=== PATIENT | female | born 1990 | race Caucasian/White ===

== ENCOUNTER 2018-10-10 07:23 | Observation (INO) | payer BC ==
[~2018-10-10 07:23] MED LIST: Dexamethasone 4 MG/ML 5 ML MDV ONE; Lactated Ringers 1,000 ML IV SCH; Lactated Ringers 1,000 ML ONE; Lidocaine 1% 4 ML ONE; Lidocaine 1%/Sod Bicarbonate in NS 8.4% 1 ML Syringe IDERM PRN; Midazolam 1 MG/ML 2 ML SDV ONE; Ondansetron 4 MG/2 ML SDV ONE; Propofol 200 MG/20 ML SDV ONE; Rocuronium 50 MG/5 ML Vial ONE; Sodium Chloride 0.9% 10 ML Syringe FLUSH PRN; ceFAZolin 1 GM Vial ONE; fentaNYL 250 MCG/5 ML SDV ONE
[2018-10-10] MEDS ORDERED: Lidocaine 1% with EPINEPHrine 1:100,000 20 ML MDV ONE (09:11)
--- NOTE | 2018-10-10 09:19 | PCM.OPNOTE ---
- General Post-Op/Procedure Note Date of Surgery/Procedure: 10/10/18 Operative Procedure(s): Laparoscopic cholecystectomy Findings: Inflamed, distended gallbladder with large gallstone Pre Op Diagnosis: Symptomatic cholelithiasis Post-Op Diagnosis: Same Anesthesia Technique: General ET Tube Primary Surgeon: Kaley Le Anesthesia Provider: Ameena Sofia Pathology: gallbladder Fluid Replacement, Intraop: 1,400 Output, Urine Amount: 0 EBL in mLs: 15 Complications: none apparent Condition: Good
--- NOTE | 2018-10-10 09:19 | PCM.PRNOTE ---
- Free Text/Narrative Note: OPERATIVE REPORT Date of Surgery/Procedure: October 10, 2018 Operative Procedure(s): laparoscopic cholecystectomy Findings: Inflamed, distended gallbladder with large gallstone Pre Op Diagnosis: Symptomatic cholelithiasis Post-Op Diagnosis: Same Anesthesia Technique: General ET Tube Primary Surgeon: Kaley Le MD Anesthesia Provider: Ameena Sofia CRNA Pathology: Gallbladder with stone Fluid Replacement, Intraop: 1400cc Output, Urine Amount: 0cc EBL: 15cc Drain/Tube Comments: None Indication for the procedure: The patient is a 28-year-old lady who presented to my office with symptomatic cholelithiasis. The patient was counseled for laparoscopic cholecystectomy, with possible conversion to open. After discussion of the risks of infection, bleeding and injury to the bile duct as well as increased complication from previous intra-abdominal surgery, the patient's consent was obtained. Description of the procedure: The patient presented to the outpatient holding area on the day of the procedure. The history and physical were verified and consent was present and on the chart. The patient was taken back to the operating room and placed in supine position on the operating table. SCD boots were placed and functional prior to the start of the procedure. Preoperative antibiotics were administered according to SCIP protocol, Ancef 2 g IV. A surgical timeout was performed. The patient then had induction of general anesthesia and was intubated without difficulty. The patient was prepped and draped in standard surgical fashion. We began by making an supraumbilical incision and inserting a 5 mm trocar into the abdomen under direct visualization using the Visiport technique. The periumbilical tissue was grasped on either side to help facilitate entry into the abdomen. Once we had entered, insufflation was attached and we had opened, probed. Opening pressures. The abdomen was insufflated to 12 mmHg. There is no evidence of injury from entry. A TAP block was then performed using 1% lidocaine with epinephrine mixed with 0.5% bupivicaine with epinephrine. The patient was then positioned with head up and right side up to facilitate exposure of the gallbladder. We then proceeded with placing our additional ports. A 12mm port was placed in the epigastric region. Two additional 5mm ports placed under direct visualization in the right upper quadrant. Once we had sufficiently exposed the dome of the gallbladder. This was grasped and retracted cephalad. A laparoscopic decompression needle was then inserted into the gallbladder to help relieve the distended fluid since the gallbladder was too tense to grasp. We proceeded with our dissection to expose the cystic duct and cystic artery. We did have a critical view. The cystic duct and artery were then clipped and cut using endoscopic scissors. We then proceeded to fully dissect the gallbladder off of the cystic plate using the Bovie device. An additional vascular structure was posterior to the gallbladder. This was clipped and divided using endoscopic scissors. The gallbladder was in place in the Endo Catch bag and withdrawn towards the epigastric port. There was some bile spilled during the case and this was suctioned out of the abdomen We then inspected the area of the dissection. This was irrigated and suctioned. A Surgicel was used to assist with hemostasis and the gallbladder bed was also treated with the Bovie device for hemostasis. At the end of the case, there was no significant bleeding and hemostasis was achieved. The fascial opening at the epigastric site was enlarged in order to facilitate excision of the gallbladder. There was a tear made in the Endo Catch bag and the gallbladder was withdrawn through the port, not completely within the bag. The gallbladder was passed off to be sent to pathology. We then inspected the liver bed and were satisfied with hemostasis, and desufflated the abdomen. The ports were then removed. A superficial 4-0 monocryl suture was used to approximate the skin at each of the port sites. The skin was covered with Dermabond surgical glue. The patient tolerated the procedure well and was extubated without difficulty. She was transported to the PACU in stable condition. All sponge, needle counts correct. I was scrubbed and actively participated in the entire procedure. No immediate complications noted. Complications: None apparent Condition: Good Kaley Le MD General Surgery
[2018-10-10] MEDS: Bupivacaine 0.5%/EPINEPHrine 1:200,000 50 ML MDV ONE ×2 (09:41→10:10)
[2018-10-10] MEDS: Lidocaine 1% with EPINEPHrine 1:100,000 20 ML MDV ONE ×2 (09:41→10:11)
[2018-10-10] MEDS ORDERED: diphenhydrAMINE 50 MG/ML SDV ONE (09:42)
[2018-10-10] MEDS ORDERED: Albuterol 6.7 GM Inhaler INH ONE (09:56)
[2018-10-10] MEDS ORDERED: Propofol 200 MG/20 ML SDV ONE (10:12)
[2018-10-10] MEDS ORDERED: HYDROmorphone 0.5 MG/0.5 ML Syringe ONE ×2 (10:17→11:08)
--- NOTE | 2018-10-10 10:27 | PCM.PREANE ---
Preanesthetic Assessment - Anesthesia/Transfusion/Family Hx Anesthesia History: No Prior Anesthesia Family History of Anesthesia Reaction: No - Review of Systems General: No Symptoms, Other (Sesonal Allergies current post nasal drip. Denies cough. ) Pulmonary: No Symptoms Cardiovascular: No Symptoms Gastrointestinal: No Symptoms (Occasional GERD with foods. ) Neurological: No Symptoms Other: Reports: None (PCOS, Morbid Obesity BMI 42. ) - Physical Assessment NPO Status Date: 10/09/18 NPO Status Time: 21:30 O2 Sat by Pulse Oximetry: 98 Respiratory Rate: 17 Vital Signs: Last Vital Signs Temp 36.9 C 10/10/18 07:28 Pulse 74 10/10/18 07:28 Resp 17 10/10/18 07:28 BP 130/85 10/10/18 07:28 Pulse Ox 98 10/10/18 07:28 Height: 1.65 m Weight: 115.2 kg ASA Class: 2 Mental Status: Alert & Oriented x3 Airway Class: Mallampati = 2 Thyro-Mental Finger Breadths: 3 Mouth Opening Finger Breadths: 3 ROM/Head Extension: Full Lungs: Clear to Auscultation, Normal Respiratory Effort, Decreased Breath Sounds (Noted in bilateral bases with ascultation. ) Cardiovascular: Regular Rate, Regular Rhythm - Lab Values: Laboratory Last Values Urine HCG, Qual Negative (NEGATIVE) 10/10/18 07:30 - Allergies Allergies/Adverse Reactions: Allergies Allergy/AdvReac Type Severity Reaction Status Date / Time kiwi Allergy Anaphylactic Verified 10/10/18 08:10 Shock tea tree Allergy Itching Verified 10/10/18 08:10 seasonal Allergy Other Uncoded 10/10/18 08:10 - Anesthesia Plan Pre-Op Medication Ordered: Anxiolytic - Acknowledgements Anesthesia Type Planned: General Anesthesia Pt an Appropriate Candidate for the Planned Anesthesia: Yes Alternatives and Risks of Anesthesia Discussed w Pt/Guardian: Yes Pt/Guardian Understands and Agrees with Anesthesia Plan: Yes PreAnesthesia Questionnaire HEENT History: Reports: Allergic Rhinitis, Impaired Vision Cardiovascular History: Reports: None Respiratory History: Reports: None Gastrointestinal History: Reports: None Genitourinary History: Reports: None 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: Polycystic Ovaries Musculoskeletal History: Reports: None Neurological History: Reports: None Psychiatric History: Reports: None Endocrine/Metabolic History: Reports: Obesity/BMI 30+ Hematologic History: Reports: None Immunologic History: Reports: None Oncologic (Cancer) History: Reports: None Other Dermatologic History: Acne, rosacea - Past Surgical History Head Surgeries/Procedures: Reports: None HEENT Surgical History: Reports: Oral Surgery Cardiovascular Surgical History: Reports: None Respiratory Surgical History: Reports: None GI Surgical History: Reports: None Female Surgical History: Reports: None Endocrine Surgical History: Reports: None Neurological Surgical History: Reports: None Oncologic Surgical History: Reports: None Dermatological Surgical History: Reports: None - SUBSTANCE USE Smoking Status *Q: Never Smoker Second Hand Smoke Exposure: No Recreational Drug Use History: No - HOME MEDS Home Medications: Home Meds Cetirizine [ZyrTEC] 10 mg PO DAILY 10/09/18 [History] EPINEPHrine [Epinephrine] 0.3 mg IM ASDIRECTED PRN 10/09/18 [History] Fluticasone Propionate [Flonase] 2 spray NS DAILY 10/09/18 [History] Ketotifen [Ketotifen 0.025% Ophth Soln] 1 drop EYEBOTH DAILY 10/09/18 [History] Levonorgestrel-Ethin Estradiol [Levonor-Eth Estrad 0.15-0.03] 1 tab PO DAILY 02/19 [History] Multivitamin [Daily Multiple Vitamin] 1 tab PO DAILY 10/09/18 [History] metroNIDAZOLE [Metrogel] 1 applic TP BID PRN 10/09/18 [History] Acetaminophen/HYDROcodone [[place] 325-5 MG] 1 tab PO Q4H PRN 14 Days #40 tablet 10/10/18 [Rx] Docusate Sodium [Colace] 100 mg PO BID 20 Days #40 cap 10/10/18 [Rx] Ibuprofen 600 mg PO Q6HR PRN 20 Days #120 tablet 10/10/18 [Rx] - CURRENT (IN HOUSE) MEDS Current Meds: Current Medications Lactated Ringer's (Ringers, Lactated) 1,000 mls @ 125 mls/hr IV ASDIRECTED VIVIAN Stop: 10/10/18 23:00 Last Admin: 10/10/18 07:40 Dose: 125 mls/hr Lidocaine/Sodium Bicarbonate (Buffered Lidocaine 1% In Ns 8.4%) 0.25 ml IDERM ONETIME PRN PRN Reason: Prior to IV Start Stop: 10/10/18 18:00 Last Admin: 10/10/18 07:40 Dose: 0.25 ml Sodium Chloride (Saline Flush) 10 ml FLUSH ASDIRECTED PRN PRN Reason: Keep Vein Open Stop: 10/10/18 18:00 Discontinued Medications Albuterol (Proventil Hfa) Confirm Administered Dose 6.7 gm INH .STK-MED ONE Stop: 10/10/18 09:57 Bupivacaine HCl/Epinephrine Bitart ([place] 0.5%/Epinephrine 1:200,000) Confirm Administered Dose 50 ml .ROUTE .STK-MED ONE Stop: 10/10/18 08:29 Last Admin: 10/10/18 10:10 Dose: 50 ml Cefazolin Sodium (Ancef) Confirm Administered Dose 2 gm .ROUTE .ST-MED ONE Stop: 10/10/18 07:12 Dexamethasone (Dexamethasone) Confirm Administered Dose 20 mg .ROUTE .ST-MED ONE Stop: 10/10/18 07:13 Diphenhydramine HCl (Benadryl) Confirm Administered Dose 50 mg .ROUTE .ST-MED ONE Stop: 10/10/18 09:43 Fentanyl (Sublimaze) Confirm Administered Dose 250 mcg .ROUTE .ST-MED ONE Stop: 10/10/18 07:12 Lidocaine HCl (Xylocaine-Mpf 1%) Confirm Administered Dose 4 mls @ as directed .ROUTE .ST-MED ONE Stop: 10/10/18 07:12 Lactated Ringer's (Ringers, Lactated) Confirm Administered Dose 1,000 mls @ as directed .ROUTE .ST-MED ONE Stop: 10/10/18 07:12 Lidocaine/Epinephrine (Xylocaine 1% With Epinephrine 1:100,000) Confirm Administered Dose 20 ml .ROUTE .ST-MED ONE Stop: 10/10/18 08:29 Last Admin: 10/10/18 10:11 Dose: 20 ml Lidocaine/Epinephrine (Xylocaine 1% With Epinephrine 1:100,000) Confirm Administered Dose 20 ml .ROUTE .ST-MED ONE Stop: 10/10/18 09:12 Midazolam HCl (Versed 1 Mg/Ml) Confirm Administered Dose 2 mg .ROUTE .STK-MED ONE Stop: 10/10/18 07:12 Ondansetron HCl (Zofran) Confirm Administered Dose 4 mg .ROUTE .STK-MED ONE Stop: 10/10/18 07:12 Propofol (Diprivan 20 Ml) Confirm Administered Dose 400 mg .ROUTE .STK-MED ONE Stop: 10/10/18 07:12 Propofol (Diprivan 20 Ml) Confirm Administered Dose 200 mg .ROUTE .STK-MED ONE Stop: 10/10/18 10:13 Rocuronium [place] (Zemuron) Confirm Administered Dose 50 mg .ROUTE .STK-MED ONE Stop: 10/10/18 07:12
[2018-10-10] MEDS ORDERED: fentaNYL 100 MCG/2 ML SDV ONE (11:05)
[2018-10-10] MEDS ORDERED: Neostigmine Methylsulfate 1 MG/ML 5 ML Syringe ONE (11:07)
[2018-10-10] MEDS ORDERED: Albuterol 0.083% 2.5 MG/3 ML Neb Soln ONE (11:44)
[2018-10-10] MEDS ORDERED: Albuterol 0.083% 2.5 MG/3 ML Neb Soln NEB ONE ×2 (11:50→12:00)
--- NOTE | 2018-10-10 11:50 | PCM.POSTAN ---
POST ANESTHESIA ASSESSMENT - MENTAL STATUS Mental Status: Alert, Oriented - VITAL SIGNS Pulse Rate: 105 SaO2: 98 Resp Rate: 17 Blood Pressure: 136/57 Temperature: 36.6 C - RESPIRATORY Respiratory Status: Respiratory Rate WNL, Airway Patent, O2 Saturation Stable, Supplemental Oxygen (Coughing, CXR requested in PACU. ) - CARDIOVASCULAR CV Status: Blood Pressure Stable, Elevated Pulse Rate - GASTROINTESTINAL GI Status: No Symptoms - PAIN Pain Score: 0 - POST OP HYDRATION Hydration Status: Adequate & Stable
[2018-10-10] MEDS ORDERED: HYDROmorphone 0.5 MG/0.5 ML Syringe IVPUSH PRN (11:52)
[2018-10-10] MEDS ORDERED: diphenhydrAMINE 50 MG/ML SDV IVPUSH PRN (11:52)
[2018-10-10] MEDS ORDERED: fentaNYL 100 MCG/2 ML SDV IVPUSH PRN (11:52)
[2018-10-10] MEDS ORDERED: Ondansetron 4 MG/2 ML SDV IVPUSH PRN (11:52)
--- NOTE | 2018-10-10 12:02 | CR ---
Chest: Portable view of the chest was obtained. Comparison: No prior chest x-ray. Cardiothymic silhouette is normal. Diffuse increased lung markings are seen on both sides of the chest. Lungs otherwise are clear with no alveolar densities. Bony structures are grossly intact. Small amount of free air is seen beneath the right hemidiaphragm. Impression: 1. Increased central lung markings on both sides of the chest. Please correlate if patient has symptoms of fluid overload. 2. Minimal free air beneath the right hemidiaphragm. Diagnostic code #3
[2018-10-10] MEDS ORDERED: Furosemide 20 MG/2 ML VIAL IVPUSH ONE (12:20)
[2018-10-10] MEDS ORDERED: Acetaminophen/HYDROcodone 325-5 MG Tab PO PRN (17:15)
[2018-10-10] MEDS ORDERED: Ibuprofen 600 MG Tab PO PRN (17:15)
[2018-10-10] MEDS ORDERED: Ondansetron 4 MG Tab.DIS PO PRN (17:15)
[2018-10-10] MEDS: Heparin Sodium 5,000 Units/ML Vial SUBCUT SCH (21:16)
[2018-10-11] MEDS: Heparin Sodium 5,000 Units/ML Vial SUBCUT SCH (05:42)
--- NOTE | 2018-10-11 10:40 | PCM.SURGPN ---
- General Info Date of Service: 10/11/18 Date of Surgery/Procedure: 10/10/18 POD#: 1 Functional Status: Reports: Pain Controlled, Tolerating Diet, Ambulating, Urinating, Incentive Spirometry, Other (Pt was admitted for findings of pulmonary edema after surgery and persistent cough with desaturations. Was placed on CPAP which was weaned overnight. Saturating well on room air this am.) - Patient Data Vitals - Most Recent: Last Vital Signs Temp 36.6 C 10/11/18 07:42 Pulse 57 L 10/11/18 08:09 Resp 16 10/11/18 07:42 BP 118/53 L 10/11/18 07:42 Pulse Ox 94 L 10/11/18 10:00 Weight - Most Recent: 69.853 kg I&O - Last 24 Hours: Intake & Output 10/10/18 10/11/18 10/11/18 22:59 06:59 14:59 Intake Total 0 500 Output Total 400 1600 Balance -400 -1100 Lab Results Last 24 Hrs: Laboratory Results - last 24 hr 10/10/18 Range/Units 18:38 WBC 16.67 H (3.98-10.04) K/mm3 RBC 4.55 (3.98-5.22) M/mm3 Hgb 13.4 (11.2-15.7) gm/L Hct 40.3 (34.1-44.9) % MCV 88.6 (79.4-94.8) fl MCH 29.5 (25.6-32.2) pg MCHC 33.3 (32.2-35.5) g/dl RDW Std Deviation 42.7 (36.4-46.3) fL Plt Count 159 L (182-369) K/mm3 MPV 9.5 (9.4-12.3) fl Neut % (Auto) 96.0 H (34.0-71.1) % Lymph % (Auto) 1.7 L (19.3-51.7) % [place] % (Auto) 2.1 L (4.7-12.5) % Eos % (Auto) 0.1 L (0.7-5.8) Baso % (Auto) 0.0 L (0.1-1.2) % Neut # (Auto) 16.01 H (1.56-6.13) K/mm3 Lymph # (Auto) 0.28 L (1.18-3.74) K/mm3 [place] # (Auto) 0.35 (0.24-0.36) K/mm3 Eos # (Auto) 0.01 L (0.04-0.36) K/mm3 Baso # (Auto) 0.00 L (0.01-0.08) K/mm3 Manual Slide Review Abnormal smear Med Orders - Current: Current Medications Hydrocodone Bitart/Acetaminophen ([place] 325-5 Mg) 2 tab PO Q4H PRN PRN Reason: Pain (moderate 4-6) Heparin Sodium (Porcine) (Heparin Sodium) 5,000 units SUBCUT Q8H VIVIAN Last Admin: 10/11/18 05:42 Dose: 5,000 units Ibuprofen (Motrin) 600 mg PO Q6H PRN PRN Reason: Pain (mild 1-3) Last Admin: 10/10/18 21:15 Dose: 600 mg Ondansetron HCl (Zofran Odt) 4 mg PO Q6H PRN PRN Reason: nausea, able to take PO Discontinued Medications Albuterol (Proventil Hfa) Confirm Administered Dose 6.7 gm INH .STK-MED ONE Stop: 10/10/18 09:57 Albuterol (Proventil Neb Soln) 2.5 mg NEB ONETIME ONE Stop: 10/10/18 11:51 Last Admin: 10/10/18 11:47 Dose: 2.5 mg Albuterol (Proventil Neb Soln) Confirm Administered Dose 2.5 mg .ROUTE .STK-MED ONE Stop: 10/10/18 11:45 Last Admin: 10/10/18 20:50 Dose: Not Given Albuterol (Proventil Neb Soln) 2.5 mg NEB ONETIME ONE Stop: 10/10/18 12:01 Last Admin: 10/10/18 20:51 Dose: Not Given Bupivacaine HCl/Epinephrine Bitart ([place] 0.5%/Epinephrine 1:200,000) Confirm Administered Dose 50 ml .ROUTE .STK-MED ONE Stop: 10/10/18 08:29 Last Admin: 10/10/18 09:41 Dose: 30 ml Cefazolin Sodium (Ancef) Confirm Administered Dose 2 gm .ROUTE .STK-MED ONE Stop: 10/10/18 07:12 Dexamethasone (Dexamethasone) Confirm Administered Dose 20 mg .ROUTE .STK-MED ONE Stop: 10/10/18 07:13 Diphenhydramine HCl (Benadryl) Confirm Administered Dose 50 mg .ROUTE .STK-MED ONE Stop: 10/10/18 09:43 Diphenhydramine HCl (Benadryl) 25 mg IVPUSH Q6H PRN PRN Reason: Pruritis Stop: 10/10/18 18:00 Fentanyl (Sublimaze) Confirm Administered Dose 250 mcg .ROUTE .STK-MED ONE Stop: 10/10/18 07:12 Fentanyl (Sublimaze) Confirm Administered Dose 100 mcg .ROUTE .STK-MED ONE Stop: 10/10/18 11:06 Fentanyl (Sublimaze) 50 mcg IVPUSH Q5M PRN PRN Reason: Pain Stop: 10/10/18 18:00 Furosemide (Lasix) 20 mg IVPUSH ONETIME ONE Stop: 10/10/18 12:21 Last Admin: 10/10/18 12:20 Dose: 20 mg Glycopyrrolate () Confirm Administered Dose 1 mg .ROUTE .STK-MED ONE Stop: 10/10/18 11:08 Heparin Sodium (Porcine) (Heparin Sodium) 5,000 units SUBCUT Q8H [facility] Hydromorphone HCl (Dilaudid) Confirm Administered Dose 0.5 mg .ROUTE .STK-MED ONE Stop: 10/10/18 10:18 Hydromorphone HCl (Dilaudid) Confirm Administered Dose 0.5 mg .ROUTE .STK-MED ONE Stop: 10/10/18 11:09 Hydromorphone HCl (Dilaudid) 0.5 mg IVPUSH Q15M PRN PRN Reason: severe pain Stop: 10/10/18 18:00 Lactated Ringer's (Ringers, Lactated) 1,000 mls @ 125 mls/hr IV ASDIRECTED VIVIAN Stop: 10/10/18 23:00 Last Admin: 10/10/18 07:40 Dose: 125 mls/hr Lidocaine HCl (Xylocaine-Mpf 1%) Confirm Administered Dose 4 mls @ as directed .ROUTE .STK-MED ONE Stop: 10/10/18 07:12 Lactated Ringer's (Ringers, Lactated) Confirm Administered Dose 1,000 mls @ as directed .ROUTE .STK-MED ONE Stop: 10/10/18 07:12 Lidocaine/Epinephrine (Xylocaine 1% With Epinephrine 1:100,000) Confirm Administered Dose 20 ml .ROUTE .STK-MED ONE Stop: 10/10/18 08:29 Last Admin: 10/10/18 09:41 Dose: 30 ml Lidocaine/Epinephrine (Xylocaine 1% With Epinephrine 1:100,000) Confirm Administered Dose 20 ml .ROUTE .STK-MED ONE Stop: 10/10/18 09:12 Lidocaine/Sodium Bicarbonate (Buffered Lidocaine 1% In Ns 8.4%) 0.25 ml IDERM ONETIME PRN PRN Reason: Prior to IV Start Stop: 10/10/18 18:00 Last Admin: 10/10/18 07:40 Dose: 0.25 ml Midazolam HCl (Versed 1 Mg/Ml) Confirm Administered Dose 2 mg .ROUTE .STK-MED ONE Stop: 10/10/18 07:12 Neostigmine Methylsulfate (Neostigmine) Confirm Administered Dose 5 mg .ROUTE .STK-MED ONE Stop: 10/10/18 11:08 Ondansetron HCl (Zofran) Confirm Administered Dose 4 mg .ROUTE .STK-MED ONE Stop: 10/10/18 07:12 Ondansetron HCl (Zofran) 4 mg IVPUSH ONETIME PRN PRN Reason: Nausea/Vomiting Stop: 10/10/18 18:00 Propofol (Diprivan 20 Ml) Confirm Administered Dose 400 mg .ROUTE .STK-MED ONE Stop: 10/10/18 07:12 Propofol (Diprivan 20 Ml) Confirm Administered Dose 200 mg .ROUTE .STK-MED ONE Stop: 10/10/18 10:13 Rocuronium [place] (Zemuron) Confirm Administered Dose 50 mg .ROUTE .STK-MED ONE Stop: 10/10/18 07:12 Sodium Chloride (Saline Flush) 10 ml FLUSH ASDIRECTED PRN PRN Reason: Keep Vein Open Stop: 10/10/18 18:00 - Exam Wound/Incisions: Healing Well, Dressing Dry and Intact, No Drainage General: Alert, Oriented HEENT: Pupils Equal, EOMI Lungs: Normal Respiratory Effort GI/Abdominal Exam: Soft, Non-Tender, No Distention, Other - Problem List & Annotations (1) Symptomatic cholelithiasis SNOMED Code(s): 871076047, 747151999 Code(s): K80.20 - CALCULUS OF GALLBLADDER W/O CHOLECYSTITIS W/O OBSTRUCTION Status: Acute Current Visit: Yes (2) Pulmonary edema SNOMED Code(s): 22190359 Code(s): J81.1 - CHRONIC PULMONARY EDEMA Status: Acute Current Visit: Yes - Problem List Review Problem List Initiated/Reviewed/Updated: Yes - My Orders Last 24 Hours: Active Orders 24 hr Category Date Time Status Patient Status [ADT] Routine ADT 10/10/18 17:15 Active Antiembolic Devices [RC] Care 10/10/18 17:17 Active Incentive Spirometry [RT Incentive Spirometry] [RC] Care 10/10/18 11:30 Active Q1HWA Oxygen Therapy [RC] PRN Care 10/10/18 17:15 Active Pulse Oximetry [RC] Q1HR Care 10/10/18 11:52 Active Ready for Discharge [RC] PER UNIT ROUTINE Care 10/10/18 11:29 Inactive Ready for Discharge [RC] PER UNIT ROUTINE Care 10/11/18 10:23 Active VTE/DVT Education [RC] Care 10/10/18 17:15 Active Vital Signs [RC] Q4HR Care 10/10/18 17:15 Active Regular Diet [DIET] Diet 10/10/18 Dinner Active Chest 1V Frontal [CR] AM Exams 10/11/18 05:11 Taken Acetaminophen/HYDROcodone [[place] 325-5 MG] Med 10/10/18 17:15 Active 2 tab PO Q4H PRN Heparin Sodium Med 10/10/18 21:00 Active 5,000 units SUBCUT Q8H Ibuprofen [Motrin] Med 10/10/18 17:15 Active 600 mg PO Q6H PRN Ondansetron [Zofran ODT] Med 10/10/18 17:15 Active 4 mg PO Q6H PRN Pulse Oximetry Continuous Monitoring [OM.PC] Routine Oth 10/10/18 13:01 Active Sequential Compression Device [OM.PC] Per Unit Routine Oth 10/10/18 17:16 Ordered Resuscitation Status Routine Resus Stat 10/10/18 13:58 Ordered Medication Orders Hydrocodone Bitart/Acetaminophen ([place] 325-5 Mg) 2 tab PO Q4H PRN PRN Reason: Pain (moderate 4-6) Heparin Sodium (Porcine) (Heparin Sodium) 5,000 units SUBCUT Q8H VIVIAN Last Admin: 10/11/18 05:42 Dose: 5,000 units Admin: 10/10/18 21:16 Dose: 5,000 units Ibuprofen (Motrin) 600 mg PO Q6H PRN PRN Reason: Pain (mild 1-3) Last Admin: 10/10/18 21:15 Dose: 600 mg Ondansetron HCl (Zofran Odt) 4 mg PO Q6H PRN PRN Reason: nausea, able to take PO - Assessment Assessment (Free Text/Narrative):: 28 y/o lady now POD 1 s/p arthroscopic cholecystectomy for symptomatic cholelithiasis. Patient developed pulmonary edema during the operation, kept overnight for monitoring of respiratory status. Now doing well - Plan Plan (Free Text/Narrative):: Continue current pain regimen. Regular diet as tolerated. Continue incentive spirometry, coughing, deep breathing Encourage ambulation Follow-up with PCP after discharge for more thorough pulmonary evaluation and sleep study Discharge home. Follow-up in 2 weeks with Amy Le MD General Surgery
--- NOTE | 2018-10-11 10:41 | PCM.DCSUM1 ---
Discharge Summary - Hospital Course Free Text/Narrative:: 28-year-old female who was seen in the hospital for symptomatic cholelithiasis and laparoscopic cholecystectomy as outpatient. During the surgery, she developed pulmonary edema. Postoperatively she was kept for monitoring of respiratory status and treatment with CPAP. The patient's pulmonary edema resolved by postop day 1. She is doing well. She is appropriate for discharge home Diagnosis: Stroke: No Modified Mellette Scale: No Signif.Disability Despite Sympt.Able to Carry Out Usual Act./Duties Modified Racquel Scale Score: 1 - Discharge Data Discharge Date: 10/11/18 Discharge Disposition: Home, Self-Care 01 Condition: Good - Discharge Diagnosis/Problem(s) (1) Symptomatic cholelithiasis SNOMED Code(s): 448601014, 121454563 ICD Code: K80.20 - CALCULUS OF GALLBLADDER W/O CHOLECYSTITIS W/O OBSTRUCTION Status: Acute Current Visit: Yes (2) Pulmonary edema SNOMED Code(s): 05703540 ICD Code: J81.1 - CHRONIC PULMONARY EDEMA Status: Acute Current Visit: Yes - Patient Summary/Data Operative Procedure(s) Performed: Laparoscopic cholecystectomy - Patient Instructions Diet: Usual Diet as Tolerated Activity: As Tolerated, No Lifting Over 20 Pounds (for 2 weeks), No Strenuous Activities (for 2 weeks), Rest and Relax Today Showering/Bathing: May Shower, No Tub Bathing/Swimming (for 2 weeks) Wound/Incision Care: Keep Operative Site/Wound Site Clean and Dry Notify Provider of: Fever, Increased Pain, Swelling and Redness, Drainage, Nausea and/or Vomiting - Discharge Plan *PRESCRIPTION DRUG MONITORING PROGRAM REVIEWED*: Not Applicable *COPY OF PRESCRIPTION DRUG MONITORING REPORT IN PATIENT [place]: Not Applicable Prescriptions/Med Rec: Ibuprofen 600 mg PO Q6HR PRN 20 Days #120 tablet PRN Reason: Pain (Mild 1-3) Acetaminophen/HYDROcodone [[place] 325-5 MG] 1 tab PO Q4H PRN 14 Days #40 tablet PRN Reason: Pain (Moderate 4-6) Docusate Sodium [Colace] 100 mg PO BID 20 Days #40 cap Home Medications: Home Meds Cetirizine [ZyrTEC] 10 mg PO DAILY 10/09/18 [History] EPINEPHrine [Epinephrine] 0.3 mg IM ASDIRECTED PRN 10/09/18 [History] Fluticasone Propionate [Flonase] 2 spray NS DAILY 10/09/18 [History] Ketotifen [Ketotifen 0.025% Ophth Soln] 1 drop EYEBOTH DAILY 10/09/18 [History] Levonorgestrel-Ethin Estradiol [Levonor-Eth Estrad 0.15-0.03] 1 tab PO DAILY 02/19 [History] Multivitamin [Daily Multiple Vitamin] 1 tab PO DAILY 10/09/18 [History] metroNIDAZOLE [Metrogel] 1 applic TP BID PRN 10/09/18 [History] Acetaminophen/HYDROcodone [[place] 325-5 MG] 1 tab PO Q4H PRN 14 Days #40 tablet 10/10/18 [Rx] Docusate Sodium [Colace] 100 mg PO BID 20 Days #40 cap 10/10/18 [Rx] Ibuprofen 600 mg PO Q6HR PRN 20 Days #120 tablet 10/10/18 [Rx] metFORMIN [Glucophage XR] 500 mg PO DAILY 10/10/18 [History] Patient Handouts: Laparoscopic Appendectomy, Adult, Care After Referrals: Amy Muro ROSE GROWER [Nurse Practitioner] - (Please call and schedule a post- surgical follow-up appointment with your primary care doctor, Dr. Amy Muro, within 2 weeks of discharge. ) - Discharge Summary/Plan Comment DC Time >30 min.: No - Patient Data Vitals - Most Recent: Last Vital Signs Temp 36.6 C 10/11/18 07:42 Pulse 57 L 10/11/18 08:09 Resp 16 10/11/18 07:42 BP 118/53 L 10/11/18 07:42 Pulse Ox 94 L 10/11/18 10:00 Weight - Most Recent: 69.853 kg I&O - Last 24 hours: Intake & Output 10/10/18 10/11/18 10/11/18 22:59 06:59 14:59 Intake Total 0 500 Output Total 400 1600 Balance -400 -1100 Lab Results - Last 24 hrs: Laboratory Results - last 24 hr 10/10/18 Range/Units 18:38 WBC 16.67 H (3.98-10.04) K/mm3 RBC 4.55 (3.98-5.22) M/mm3 Hgb 13.4 (11.2-15.7) gm/L Hct 40.3 (34.1-44.9) % MCV 88.6 (79.4-94.8) fl MCH 29.5 (25.6-32.2) pg MCHC 33.3 (32.2-35.5) g/dl RDW Std Deviation 42.7 (36.4-46.3) fL Plt Count 159 L (182-369) K/mm3 MPV 9.5 (9.4-12.3) fl Neut % (Auto) 96.0 H (34.0-71.1) % Lymph % (Auto) 1.7 L (19.3-51.7) % Benzie % (Auto) 2.1 L (4.7-12.5) % Eos % (Auto) 0.1 L (0.7-5.8) Baso % (Auto) 0.0 L (0.1-1.2) % Neut # (Auto) 16.01 H (1.56-6.13) K/mm3 Lymph # (Auto) 0.28 L (1.18-3.74) K/mm3 Benzie # (Auto) 0.35 (0.24-0.36) K/mm3 Eos # (Auto) 0.01 L (0.04-0.36) K/mm3 Baso # (Auto) 0.00 L (0.01-0.08) K/mm3 Manual Slide Review Abnormal smear Med Orders - Current: Current Medications Hydrocodone Bitart/Acetaminophen ([place] 325-5 Mg) 2 tab PO Q4H PRN PRN Reason: Pain (moderate 4-6) Heparin Sodium (Porcine) (Heparin Sodium) 5,000 units SUBCUT Q8H [facility] Last Admin: 10/11/18 05:42 Dose: 5,000 units Ibuprofen (Motrin) 600 mg PO Q6H PRN PRN Reason: Pain (mild 1-3) Last Admin: 10/10/18 21:15 Dose: 600 mg Ondansetron HCl (Zofran Odt) 4 mg PO Q6H PRN PRN Reason: nausea, able to take PO Discontinued Medications Albuterol (Proventil Hfa) Confirm Administered Dose 6.7 gm INH .STK-MED ONE Stop: 10/10/18 09:57 Albuterol (Proventil Neb Soln) 2.5 mg NEB ONETIME ONE Stop: 10/10/18 11:51 Last Admin: 10/10/18 11:47 Dose: 2.5 mg Albuterol (Proventil Neb Soln) Confirm Administered Dose 2.5 mg .ROUTE .STK-MED ONE Stop: 10/10/18 11:45 Last Admin: 10/10/18 20:50 Dose: Not Given Albuterol (Proventil Neb Soln) 2.5 mg NEB ONETIME ONE Stop: 10/10/18 12:01 Last Admin: 10/10/18 20:51 Dose: Not Given Bupivacaine HCl/Epinephrine Bitart (Marcaine 0.5%/Epinephrine 1:200,000) Confirm Administered Dose 50 ml .ROUTE .STK-MED ONE Stop: 10/10/18 08:29 Last Admin: 10/10/18 09:41 Dose: 30 ml Cefazolin Sodium (Ancef) Confirm Administered Dose 2 gm .ROUTE .STK-MED ONE Stop: 10/10/18 07:12 Dexamethasone (Dexamethasone) Confirm Administered Dose 20 mg .ROUTE .STK-MED ONE Stop: 10/10/18 07:13 Diphenhydramine HCl (Benadryl) Confirm Administered Dose 50 mg .ROUTE .STK-MED ONE Stop: 10/10/18 09:43 Diphenhydramine HCl (Benadryl) 25 mg IVPUSH Q6H PRN PRN Reason: Pruritis Stop: 10/10/18 18:00 Fentanyl (Sublimaze) Confirm Administered Dose 250 mcg .ROUTE .STK-MED ONE Stop: 10/10/18 07:12 Fentanyl (Sublimaze) Confirm Administered Dose 100 mcg .ROUTE .STK-MED ONE Stop: 10/10/18 11:06 Fentanyl (Sublimaze) 50 mcg IVPUSH Q5M PRN PRN Reason: Pain Stop: 10/10/18 18:00 Furosemide (Lasix) 20 mg IVPUSH ONETIME ONE Stop: 10/10/18 12:21 Last Admin: 10/10/18 12:20 Dose: 20 mg Glycopyrrolate () Confirm Administered Dose 1 mg .ROUTE .STK-MED ONE Stop: 10/10/18 11:08 Heparin Sodium (Porcine) (Heparin Sodium) 5,000 units SUBCUT Q8H [facility]IVIAN Hydromorphone HCl (Dilaudid) Confirm Administered Dose 0.5 mg .ROUTE .STK-MED ONE Stop: 10/10/18 10:18 Hydromorphone HCl (Dilaudid) Confirm Administered Dose 0.5 mg .ROUTE .STK-MED ONE Stop: 10/10/18 11:09 Hydromorphone HCl (Dilaudid) 0.5 mg IVPUSH Q15M PRN PRN Reason: severe pain Stop: 10/10/18 18:00 Lactated Ringer's (Ringers, Lactated) 1,000 mls @ 125 mls/hr IV ASDIRECTED VIVIAN Stop: 10/10/18 23:00 Last Admin: 10/10/18 07:40 Dose: 125 mls/hr Lidocaine HCl (Xylocaine-Mpf 1%) Confirm Administered Dose 4 mls @ as directed .ROUTE .STK-MED ONE Stop: 10/10/18 07:12 Lactated Ringer's (Ringers, Lactated) Confirm Administered Dose 1,000 mls @ as directed .ROUTE .ST-MED ONE Stop: 10/10/18 07:12 Lidocaine/Epinephrine (Xylocaine 1% With Epinephrine 1:100,000) Confirm Administered Dose 20 ml .ROUTE .STK-MED ONE Stop: 10/10/18 08:29 Last Admin: 10/10/18 09:41 Dose: 30 ml Lidocaine/Epinephrine (Xylocaine 1% With Epinephrine 1:100,000) Confirm Administered Dose 20 ml .ROUTE .ST-MED ONE Stop: 10/10/18 09:12 Lidocaine/Sodium Bicarbonate (Buffered Lidocaine 1% In Ns 8.4%) 0.25 ml IDERM ONETIME PRN PRN Reason: Prior to IV Start Stop: 10/10/18 18:00 Last Admin: 10/10/18 07:40 Dose: 0.25 ml Midazolam HCl (Versed 1 Mg/Ml) Confirm Administered Dose 2 mg .ROUTE .STK-MED ONE Stop: 10/10/18 07:12 Neostigmine Methylsulfate (Neostigmine) Confirm Administered Dose 5 mg .ROUTE .STK-MED ONE Stop: 10/10/18 11:08 Ondansetron HCl (Zofran) Confirm Administered Dose 4 mg .ROUTE .STK-MED ONE Stop: 10/10/18 07:12 Ondansetron HCl (Zofran) 4 mg IVPUSH ONETIME PRN PRN Reason: Nausea/Vomiting Stop: 10/10/18 18:00 Propofol (Diprivan 20 Ml) Confirm Administered Dose 400 mg .ROUTE .STK-MED ONE Stop: 10/10/18 07:12 Propofol (Diprivan 20 Ml) Confirm Administered Dose 200 mg .ROUTE .STK-MED ONE Stop: 10/10/18 10:13 Rocuronium [place] (Zemuron) Confirm Administered Dose 50 mg .ROUTE .STK-MED ONE Stop: 10/10/18 07:12 Sodium Chloride (Saline Flush) 10 ml FLUSH ASDIRECTED PRN PRN Reason: Keep Vein Open Stop: 10/10/18 18:00
[2018-10-11] MEDS ORDERED: Heparin Sodium 5,000 Units/ML Vial SUBCUT SCH (20:00)
--- NOTE | 2018-10-13 06:35 | CR ---
Chest: Portable view of the chest was obtained. Comparison: Prior chest x-ray of 10/10/18. Heart size and mediastinum are within normal limits. Lung markings are mildly increased which appear stable. Lungs otherwise are clear. Bony structures are grossly intact. Impression: 1. Continuing increased lung markings, uncertain if findings are chronic or due to persisting fluid overload or other etiology. 2. Nothing acute seen from prior chest x-ray. Diagnostic code #3 I agree with preliminary report from ad, finalized on 10/11/18, 10:23 AM Central Time, code #2
--- NOTE | 2018-10-13 10:23 | PCM48HPAN ---
Post Anesthesia Note - EVALUATION WITHIN 48HRS OF ANESTHETIC Vital Signs in Normal Range: Yes Patient Participated in Evaluation: No (RN talked to ) Respiratory Function Stable: Yes Airway Patent: Yes Cardiovascular Function Stable: Yes Hydration Status Stable: Yes Pain Control Satisfactory: Yes Nausea and Vomiting Control Satisfactory: Yes Mental Status Recovered: Yes Pulse Rate: 57 Resp Rate: 16 Temperature: 36.6 C Blood Pressure: 118/53 - COMMENTS/OBSERVATIONS Free Text/Narrative:: 10/11/2018, 1900 - Patient discharged from the hospital per RN.
== END 2018-10-11 11:18 | disposition home or self-care (01) ==
LOC: JD.SDS 07:23 → JD.MS 13:35 → JD.SDS 17:15 → JD.MS 17:15
PROVIDERS: ADMIT Surgery; ATTEND Surgery
DX: K80.10 Calculus of gallbladder with chronic cholecystitis without obstruction (principal); J95.88 Other intraoperative complications of respiratory system, not elsewhere classified; E28.2 Polycystic ovarian syndrome; E66.01 Morbid (severe) obesity due to excess calories; Z68.41 Body mass index [BMI] 40.0-44.9, adult; Z91.018 Allergy to other foods; Z79.51 Long term (current) use of inhaled steroids; Z79.899 Other long term (current) drug therapy
CPT/HCPCS: 36415; 47562; 71045; 81025; 85025; 94640; 94660; 94762; 96372; A9270; G0378; J0690; J1100; J1170; J1200; J1644; J2001; J2250; J2405; J2704; J2710; J3010; J3490; J7120; 00790